=== PATIENT | male | born 1940 | race Caucasian/White ===

== ENCOUNTER 2017-07-24 12:40 | Inpatient (IN) | payer MEDICARE, BC ==
[2017-07-27] MEDS ORDERED: ACETAMINOPHEN325 MG PO (10:45)
[2017-07-27] MEDS ORDERED: ACETIC ACID-ALU60 ML AU (10:46)
[2017-07-27] MEDS ORDERED: XANAX DPS0.5 MG PO (10:47)
[2017-07-27] MEDS ORDERED: MAALOX DPS30 ML PO (10:47)
[2017-07-27] MEDS ORDERED: PROVENTIL2.5 MG/3 M IH (10:47)
[2017-07-27] MEDS ORDERED: ASPIRIN81 MG PO (10:48)
[2017-07-27] MEDS ORDERED: PROBIOTIC1 EAC1 PO (10:48)
[2017-07-27] MEDS ORDERED: CALCIUM CARBON500 MG PO (10:48)
[2017-07-27] MEDS ORDERED: CARBIDOPA-LEVO1 EAC6 PO (10:48)
[2017-07-27] MEDS ORDERED: CARBIDOPA-LEVO1 EAC4 PO (10:49)
[2017-07-27] MEDS ORDERED: VITAMIN D-32000 UNI1 PO (10:49)
[2017-07-27] MEDS ORDERED: VOLTAREN 1% GE100 GM TP (10:50)
[2017-07-27] MEDS ORDERED: ROBITUSSIN100 MG/5 M PO (10:50)
[2017-07-27] MEDS ORDERED: FML 0.1% OS (10:51)
[2017-07-27] MEDS ORDERED: LEVOTHYROXINE175 MCG PO (10:52)
[2017-07-27] MEDS ORDERED: NEURONTIN DPS400 MG PO (10:52)
[2017-07-27] MEDS ORDERED: IMDUR DPS60 MG PO (10:52)
[2017-07-27] MEDS ORDERED: PENTASA500 MG PO (10:53)
[2017-07-27] MEDS ORDERED: LIDOCAINE PATCH 5% TD (10:53)
[2017-07-27] MEDS ORDERED: TOPROL XL25 MG PO (10:53)
[2017-07-27] MEDS ORDERED: NITROSTAT0.4 MG SL (10:54)
[2017-07-27] MEDS ORDERED: TEARS NATURAL D15 ML OU (10:54)
[2017-07-27] MEDS ORDERED: PROTONIX40 MG PO (10:55)
[2017-07-27] MEDS ORDERED: ZOFRAN ODT4 MG PO (10:55)
[2017-07-27] MEDS ORDERED: PREDNISOLONE OU (10:55)
[2017-07-27] MEDS ORDERED: ZOLOFT50 MG PO (10:56)
[2017-07-27] MEDS ORDERED: METAMUCIL PACK3.4 GM PO (10:56)
[2017-07-27] MEDS ORDERED: ZOCOR DPS20 MG PO (10:56)
[2017-07-27] MEDS ORDERED: LEVAQUIN DPS750 MG PO (10:57)
[2017-07-27] MEDS ORDERED: AMBIEN DPS5 MG PO (10:57)
[2017-07-27] MEDS ORDERED: MS CONTIN DPS15 MG PO (10:57)
== END 2017-07-26 15:30 | disposition home or self-care (01) | DRG 177 ==
DX: J69.0 Pneumonitis due to inhalation of food and vomit (principal); I21.3 ST elevation (STEMI) myocardial infarction of unspecified site; G20 Parkinson's disease; I24.8 Other forms of acute ischemic heart disease; G62.9 Polyneuropathy, unspecified; I25.10 Atherosclerotic heart disease of native coronary artery without angina pectoris; E78.5 Hyperlipidemia, unspecified; I11.0 Hypertensive heart disease with heart failure; I50.9 Heart failure, unspecified; N20.0 Calculus of kidney; K22.4 Dyskinesia of esophagus; H54.41 Blindness, right eye, normal vision left eye; R31.9 Hematuria, unspecified; K21.9 Gastro-esophageal reflux disease without esophagitis; N52.9 Male erectile dysfunction, unspecified; F32.9 Major depressive disorder, single episode, unspecified; G89.29 Other chronic pain; D64.9 Anemia, unspecified; F41.9 Anxiety disorder, unspecified; E03.9 Hypothyroidism, unspecified; M19.90 Unspecified osteoarthritis, unspecified site; H91.93 Unspecified hearing loss, bilateral; K44.9 Diaphragmatic hernia without obstruction or gangrene; Z86.19 Personal history of other infectious and parasitic diseases; Z87.891 Personal history of nicotine dependence; Z90.49 Acquired absence of other specified parts of digestive tract; Z95.0 Presence of cardiac pacemaker; Z95.1 Presence of aortocoronary bypass graft; Z93.2 Ileostomy status; Z85.46 Personal history of malignant neoplasm of prostate; Z95.5 Presence of coronary angioplasty implant and graft; Z96.651 Presence of right artificial knee joint; Z79.82 Long term (current) use of aspirin; Z82.49 Family history of ischemic heart disease and other diseases of the circulatory system; Z96.611 Presence of right artificial shoulder joint